=== PATIENT | male | born 1975 | race Caucasian/White ===

== ENCOUNTER 2016-04-08 21:28 | Emergency (ER) | payer OTHER ==
[2016-04-08] MEDS ORDERED: CHARCOAL ACTIVATED LIQUID 25 GM/120 ML BTL As Ordered ONE (21:52)
[2016-04-08 21:57] LABS: MEAN CORPUSCULAR HGB CONC 34.5 g/dl (32.0-36.5); MEAN CORPUSCULAR VOLUME 86.9 fl (80.0-96.0); RED CELL DISTRIBUTION WIDTH 11.9 % (11.5-14.5); WHITE BLOOD COUNT 4.3 K/mm3 (4.0-10.0)
[2016-04-08 22:37] LABS: ALBUMIN 3.9 GM/DL (3.2-5.2); ALKALINE PHOSPHATASE 48 U/L (45-117); ALT/SGPT 65 U/L (12-78); ANION GAP 8 MEQ/L (8-16); AST/SGOT 33 U/L (15-37); BILIRUBIN,DIRECT 0.3 MG/DL (0.0-0.2); BILIRUBIN,TOTAL 1.4 MG/DL (0.2-1.0); BLOOD UREA NITROGEN 16 MG/DL (7-18); CALCIUM LEVEL 8.8 MG/DL (8.5-10.1); CARBON DIOXIDE LEVEL 29 MEQ/L (21-32); CHLORIDE LEVEL 105 MEQ/L (98-107); GLOMERULAR FILTRATION RATE > 60.0 (>60); GLUCOSE, FASTING 126 MG/DL (70-105); POTASSIUM SERUM 3.5 MEQ/L (3.5-5.1); SODIUM LEVEL 142 MEQ/L (136-145); TOTAL PROTEIN 6.9 GM/DL (6.4-8.2)
[2016-04-08 22:39] LABS: AMPHETAMINES LEVEL URINE NEGATIVE (NEGATIVE); BENZODIAZEPINES URINE NEGATIVE (NEGATIVE); COCAINE METABOLITE URINE NEGATIVE (NEGATIVE); CONTROL LINE INT CTR LINE PRESENT; METHADONE URINE NEGATIVE (NEGATIVE); OPIATES URINE NEGATIVE (NEGATIVE); TRICYCLIC ANTIDEPRESS URINE NEGATIVE (NEGATIVE)
--- NOTE | 2016-04-09 02:43 | EDDOCDS ---
Physician Documentation [facility] Name: Dirk Quintero Age: 40 yrs Sex: Male : 1975 Arrival Date: 04/08/2016 Time: 21:28 Bed BH Private MD: Disposition: 04/09/16 01:40 [facility]. Diagnosis is Suicide attempt. - Reason for transfer: Higher level of care. - Accepting physician is Dr Stratton. - Condition is Stable. - Problem is new. - Symptoms have improved. Historical: - Allergies: No known drug Allergies; - Home Meds: 1. 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 omeprazole 20 mg Oral cpDR 1 cap once daily 3. ibuprofen 800 mg Oral tab 1 tab 3 times per day 4. Zyrtec 10 mg Oral tab 1 tab once daily - PMHx: GERD; - PSHx: none; - Social history: Smoking status: Patient states former smoker of tobacco. No barriers to communication noted, The patient speaks fluent Israeli, Speaks appropriately for age. - Family history: Not pertinent. - : The pt / caregiver states he / she is not on anticoagulants. Home medication list is obtained from the patient. - Exposure Risk Screening:: None identified. Vital Signs: 04/08 21:33 BP 165 / 102; Pulse 83; Resp 18; Temp 97.4(O); Pulse Ox 94% on R/A; Weight 107.05 kg / conrado 236 lbs (R); Height 70 in. (177.80 cm) (R); Pain 0/10; 23:35 BP 143 / 86; Pulse 88; Resp 18; Temp 98.3(TE); Pulse Ox 94% on R/A; Pain 0/10; nn1 04/09 02:40 BP 133 / 67; Pulse 74; Resp 16; Temp 97.4; Pulse Ox 99% on R/A; Pain 0/10; sls1 04/08 21:33 Body Mass Index 33.86 (107.05 kg, 177.80 cm) conrado MDM: 04/08 21:32 Consult PFS/PSA/Video Game Creator ordered. 11 21:32 Consult PFS/PSA/Video Game Creator: Patient's case requires discussion with on-call 11 Psychiatrist ordered. 21:32 PSA/PFS to call Nursing Sales And Leasing Agent, to enter patient data on [place] Safe [place] if patient cs11 involuntarily admitted or transferred for SI or HI ordered. 21:32 Confirm accurate psychiatric medication list and times of last dosage ordered. cs11 21:32 Detain Pt Until Medically/PFS Cleared ordered. cs11 21:33 Acetaminophen Level Ordered. EDMS 21:33 Basic Metabolic Profile Ordered. EDMS 21:33 Complete Blood Count Ordered. EDMS 21:33 Drug Eval Toxicology ED Only Ordered. EDMS 21:33 Ethyl Alcohol (ethanol) Ordered. EDMS 21:34 Liver Profile Ordered. EDMS 21:34 Salicylate Level Ordered. EDMS 21:34 Thyroid Stimulating Hormone Ordered. EDMS 21:34 ECG WITH READING ER PHYS+CARDIAG ordered. EDMS 21:38 Activated Charcoal (1g/kg) Suspension 100 grams PO once ordered. cs11 21:42 Consult PFS/PSA/Video Game Creator complete. ml4 21:42 Consult PFS/PSA/Video Game Creator: Patient's case requires discussion with on-call ml4 Psychiatrist complete. 21:42 PSA/PFS to call Nursing Sales And Leasing Agent, to enter patient data [place] Safe [place] if patient ml4 involuntarily admitted or transferred for SI or HI complete. 22:31 Complete Blood Count Reviewed. cs11 23:13 Financial registration complete. zo 23:15 [facility] Payment Agreement was scanned into [email or web address] and attached to record. zo 23:21 Acetaminophen Level Reviewed. cs11 23:21 Basic Metabolic Profile Reviewed. cs11 23:21 Liver Profile Reviewed. cs11 23:21 Salicylate Level Reviewed. cs11 23:21 Thyroid Stimulating Hormone Reviewed. cs11 23:21 Drug Eval Toxicology ED Only Reviewed. cs11 23:21 Ethyl Alcohol (ethanol) Reviewed. cs11 23:21 Consult PFS/PSA/Socail Worker: Cleared medically for eval ordered. cs11 04/09 00:40 Consult PFS/PSA/Socail Worker: Cleared medically for eval complete. cl 01:40 [facility] Legal paperwork was scanned into [email or web address] and attached to record. cl Administered Medications: 04/08 23:35 Drug: Activated Charcoal (1g/kg) 100 grams [activated charcoal 25 gram/120 mL oral nn1 suspension (9600 drps)] {Note: Patient drank all 4 bottles of charcoal. .} Route: PO; Signatures: Dispatcher [employer] EDMS Job Martinez, PSA PSA cl Ameena Lewis, PSA PSA ml4 Christi Cooley Shannon RN RN sls1 [place] Vásquez, DO OVIEDO cs11 Bonny Mg LPN LPN Susan Rees,RN RN nn1 The chart was reviewed and I authenticate all verbal orders and agree with the evaluation and treatment provided.Attachments: 23:15 [facility] Payment Agreement zo MTDD
--- NOTE | 2016-04-09 02:43 | EDDOCDS ---
Nurse's Notes [facility] Name: Dirk Quintero Age: 40 yrs Sex: Male : 1975 Arrival Date: 04/08/2016 Time: 21:28 Bed [facility] Private MD: Diagnosis: Suicide attempt Presentation: 04/08 21:33 Presenting complaint: Patient states: he believes he took approximately 10 pills, nn1 bottle found empty without a cap. Patient states "I was tired of fighting, I wanted to be done". EMS states: patient overdosed on clonazepam. Patient drowsy upon arrival, patient reports "I wanted to go to sleep". EMS reports Viagra also found in hotel room. EMS found note stating "I really didn't know what happen to me, I love my family". Adult Sepsis Screening: Patient has new or worsening altered mentation (1 point). Patient's respiratory rate is less than 22. Systolic blood pressure is greater than 100. Patient has a qSOFA score of 0- Negative Sepsis Screen. Suicide/Homicide risk assessment- The patient admits to and/or has been reported to be having suicidal ideations. 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 Transition of care: patient was not received from another setting of care. 21:33 Acuity: PEÑA Level 3 nn1 21:33 Method Of Arrival: Ambulance nn1 Triage Assessment: 21:40 General: Appears in no apparent distress, comfortable, Behavior is appropriate for age, nn1 cooperative, drowsy. Pain: Denies pain. Pt Declines HIV testing. The patient is triaged at the bedside. See Assessment in Nurses Notes section of ED record. Neurological: Level of Consciousness is awake, alert, obeys commands, Oriented to person, place, time, Moves all extremities. Speech is slurred, Facial symmetry appears normal. Cardiovascular: Capillary refill < 3 seconds Chest pain is denied. Respiratory: Airway is patent Respiratory effort is even, unlabored, Respiratory pattern is regular, symmetrical, Breath sounds are clear bilaterally. GI: Abdomen is non- distended Bowel sounds present X 4 quads. Abd is soft and non tender X 4 quads. Derm: Skin is pink, warm & dry. Historical: - Allergies: No known drug Allergies; - Home Meds: 1. 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 omeprazole 20 mg Oral cpDR 1 cap once daily 3. ibuprofen 800 mg Oral tab 1 tab 3 times per day 4. Zyrtec 10 mg Oral tab 1 tab once daily - PMHx: GERD; - PSHx: none; - Social history: Smoking status: Patient states former smoker of tobacco. No barriers to communication noted, The patient speaks fluent Estonian, Speaks appropriately for age. - Family history: Not pertinent. - : The pt / caregiver states he / she is not on anticoagulants. Home medication list is obtained from the patient. - Exposure Risk Screening:: None identified. Screenin:36 Screening information is obtained from the patient. Fall risk: No risks identified. nn1 Assistance ADL's: requires no assistance with activities of daily living. Abuse/DV Screen: The patient / caregiver reports he/she is: not in a situation that causes fear, pain or injury. Nutritional screening: No deficits noted. Advance Directives: There is no active DNR order. home support is adequate. Assessment: 21:41 General: See triage assessment . nn1 22:03 General: Patient drinking first bottle of charcoal at this time. Neurological: Level of nn1 Consciousness is awake, alert, obeys commands, Oriented to person, place, time. Respiratory: Airway is patent Respiratory effort is even, unlabored, Respiratory pattern is regular, symmetrical. 22:32 General: Appears in no apparent distress, comfortable, Behavior is appropriate for age, nn1 cooperative. Neurological: Level of Consciousness is awake, alert, obeys commands, Oriented to person, place, time, Moves all extremities. Speech is normal, Facial symmetry appears normal. Respiratory: Airway is patent Respiratory effort is even, unlabored, Respiratory pattern is regular, symmetrical. GI: Denies nausea, vomiting. Derm: Skin is pink, warm & dry. 22:33 General: Patient drinking 3rd bottle of charcoal. No vomiting at this time.. nn1 23:09 Reassessment: Patient appears in no apparent distress at this time. General: Appears in nn1 no apparent distress, comfortable, Behavior is appropriate for age, cooperative. Respiratory: Airway is patent Respiratory effort is even, unlabored, Respiratory pattern is regular, symmetrical. 23:36 General: Appears in no apparent distress, comfortable, Behavior is appropriate for age, nn1 cooperative. Pain: Denies pain. Neurological: Level of Consciousness is awake, alert, obeys commands, Oriented to person, place, time. Respiratory: Airway is patent Respiratory effort is even, unlabored, Respiratory pattern is regular, symmetrical, Breath sounds are clear bilaterally. GI: No deficits noted. Derm: Skin is pink, warm & dry. 23:36 General: Patient moved to [facility]. . nn1 04/09 01:19 General: Appears in no apparent distress, comfortable, Behavior is appropriate for age, slm cooperative. General: pt resting on stretcher security observing . Respiratory: Airway is patent Respiratory effort is even, unlabored, Respiratory pattern is regular. 02:26 General: Appears in no apparent distress, comfortable, Behavior is appropriate for age, slm cooperative. General: pt resting on stretcher security observing . Respiratory: Airway is patent Respiratory effort is even, unlabored. Derm: Skin is pink, warm & dry. 02:36 General: Appears in no apparent distress, comfortable, Behavior is appropriate for age, slm cooperative. General: awaiting transfer security observing . Pain: Denies pain. Neurological: Level of Consciousness is awake, alert, obeys commands. Respiratory: Airway is patent Respiratory effort is even, unlabored. Derm: Skin is pink, warm & dry. 02:40 General: Appears in no apparent distress, Behavior is appropriate for age, cooperative. sls1 Neurological: No deficits noted. Mental Health Eval: 04/08 21:55 Referral Information: Evaluation referral is generated by [facility]. The patient was referred for evaluation because Pt reportedly feeling hopeless/depressed, took intentional OD of Klonopin earlier this evening, made statements that he was "done", tearful on arrival to ED.. Awaiting: medical clearance for [facility]... 04/09 00:02 Status: [facility] Behavioral Health: The patient is not an established patient of [facility]. 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 Pt admittedly took Klonopin last evening due to wanting "to be done with everything", "didn't care if I would wake up or not", states he spoke to his on phone and reported to her what he had done and she called his CHANCE, pt was found lethargic in local hotel room. PT admits to ongoing marital px, states his told him she was considering him after an incident this past weekend. Pt reports this past Friday he began drinking and had a blackout, states he ended up at a "strip joint", did not recall going there or returning to his hotel room, lost several important items including Gov't ID, informed his spouse of incident and she became angry threatening to leave him with their 3 children, pt states "its the kids that really got to me", referring to possibility that spouse will leave and take the children. Pt admits to thinking about this and then wanting to "go to sleep". 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 Pt appears sad, depressed, tearful at times, denies HI/AH/VH, reports poor sleep, low energy and poor concentration, increased appetite in past year with weight gain.. Delusions are denied. Patient's mood is dysthymic, Hallucinations are denied. Mental Health history: anxiety, depression, Mental Health Admissions: None. Current Outpatient Mental Health Services: None. Current living environment is The patient currently lives with his / her children. with his / her spouse, . The patient is . Patient presents to Emergency Department with the following symptoms within the past 2 weeks: anxiety, increased appetite, depressed mood, feelings of helplessness/hopelessness, marital problem, poor concentration, poor impulse control, sleep disturbance - erratic suicidal ideation with attempt/gesture by pills. Substance abuse: pt reports frequent ETOH use, drinks wine daily, sometimes "mixed with [place] Urbano". Mental status exam: Patients appearance is appropriate, Patient's behavior is superficially cooperative Speech is normal. Affect is flat. Mood is dysthymic Hallucinations are denied. Appetite is characterized by binges. Memory is good. Energy level is tires easily. Content of thought is depressive. depressive Thought process is intact. Cognitive level is oriented to person, place, time and situation Patient's insight is poor. Judgement is poor. Rapport with interviewer is guarded. Suicidal Ideation present with a plan to kill self by pills. Homicidal ideation is not present. Disposition: Medically cleared for disposition by Cleveland Vásquez DO Psychiatric Consult is performed by phone with Dr Tommy Mason MD. [facility] Admission Criteria: The patient has had a suicide attempt in the recent past. The patient is experiencing suicidal ideation. The patient displays symptoms of severe psychiatric disorder resulting in disordered behavior and significant interference with his / her ability to maintain self care. Psychomotor Retardation. The patient requires continuous observation and/or control to protect self, others or property. The patient's care requires a multi-modal treatment plan under close supervision and coordination due to the complexity and severity of the patient's symptoms. Legal Status: Patient's legal status will be [facility] admission: . [place] Safe Act: [place] Safe Act is applicable to this patient. The patient poses a risk to self or other and the Nursing Night Court Magistrate has been notified. He/She will enter the patient's data. DSM-V Differential Diagnosis: Adjustment Disorder (F43.2) with depressed mood (F43.21). Insurance Pre-Certification: Not Required, . Family Notification: Transfer plan is communicated to [facility] at bedside. 00:57 Narrative: Joon Garcia contacts: [facility] Pedro Early [phone]......1[employer]. [employer] Evangelista Sanford [phone]. 01:35 Narrative: [facility] on diversion, no beds at [facility] not an cl option tonight as only 1 ED physician available to complete 2PC...chart faxed to [facility] for review.... Awaiting: referral hospital acceptance. 02:34 Awaiting: arrival of EMS for transfer. cl Vital Signs: 04/08 21:33 BP 165 / 102; Pulse 83; Resp 18; Temp 97.4(O); Pulse Ox 94% on R/A; Weight 107.05 kg conrado (R); Height 70 in. (177.80 cm) (R); Pain 0/10; 23:35 BP 143 / 86; Pulse 88; Resp 18; Temp 98.3(TE); Pulse Ox 94% on R/A; Pain 0/10; nn1 04/09 02:40 BP 133 / 67; Pulse 74; Resp 16; Temp 97.4; Pulse Ox 99% on R/A; Pain 0/10; [facility] 02 21:33 Body Mass Index 33.86 (107.05 kg, 177.80 cm) conrado Vitals: 02:27 Log In Time N/A - ambulance arrival. [facility] ED Course: 04/08 21:29 Patient visited by Gisela Drew PCA. tmm1 21:29 Patient moved to Waiting tmm1 21:30 Rubia Laughlin,RN is Primary Nurse. tmm1 21:30 Patient moved to 1 tmm1 21:31 Cleveland Vásquez DO is Attending Physician. cs11 21:31 Patient visited by Cleveland Vásquez DO. cs11 21:34 Patient visited by Apoorva Flores PCA. conrado 21:34 Pt greeted and oriented to ED. Patient advised of names of staff involved in care, conrado location of call love, wait times and NPO status. Patient has correct armband on for positive identification. Placed in psych safe attire. Bed in low position. Call light in reach. Side rails up X2. surveillance system monitor on. Pulse ox on. NIBP on. 21:37 Triage Initiated nn1 21:39 Patient visited by Apoorva Flores PCA. conrado 21:39 EKG done. (by ED staff). Reviewed by Cleveland Vásquez DO. conrado 21:41 IV is patent, is intact, 20G left hand . nn1 21:50 Acetaminophen Level Sent. nn1 21:50 Basic Metabolic Profile Sent. nn1 21:50 Complete Blood Count Sent. nn1 21:50 Ethyl Alcohol (ethanol) Sent. nn1 21:50 Liver Profile Sent. nn1 21:50 Salicylate Level Sent. nn1 21:50 Thyroid Stimulating Hormone Sent. nn1 22:02 Drug Eval Toxicology ED Only Sent. nn1 22:32 Patient visited by Susan Fortune RN. nn1 23:09 Patient visited by Susan Fortune RN. nn1 23:15 [facility] Payment Agreement was scanned into [employer] (formerly [employer]) and attached to record. zo 23:24 Patient name changed from Dirk\\S\\\\S\\Brown\\S\\ to Dirk\\S\\ \\S\\Brown. EDMS 23:37 Patient moved to [facility] nn1 23:45 Patient visited by Axel Laboy. mas 23:45 Pt greeted and oriented to ED. Patient advised of names of staff involved in care, mas location of call love, wait times and NPO status. Accompanied by escorts, Patient has correct armband on for positive identification. Placed in psych safe attire. Bed in low position. Call light in reach. Side rails up X 1. Security observing. Property inventory done, secured in belongings bag- Placed in locker 1. Door closed. Noise minimized. Moved to private room. Verbal reassurance given. Warm blanket given. Pillow given. Psych Safety Check: Location: Psych Room. Visual Assessment: cooperative \\T\\ this time. 23:56 Primary Nurse role handed off by Rubia Laughlin RN dre 04/09 00:00 Patient visited by Axel Laboy. mas 00:16 Patient visited by Axel Laboy. mas 00:30 Patient visited by Axel Laboy. mas 00:44 Patient visited by Axel Laboy. mas 01:00 Patient visited by Axel Laboy. mas 01:15 Patient visited by Axel Laboy. mas 01:20 Patient visited by Bonny Mg LPN. slm 01:30 Patient visited by Axel Laboy. mas 01:40 M[facility] Legal paperwork was scanned into [employer] (formerly [employer]) and attached to record. cl 01:45 Patient visited by Axel Laboy. mas 02:01 Patient visited by Axel Laboy. mas 02:15 Patient visited by Axel Laboy. mas 02:26 Bonny Mg LPN is Primary Nurse. slm 02:27 Patient visited by Bonny Mg LPN. slm 02:27 The patient / caregiver is instructed regarding the plan of care and ED course. slm 02:30 Patient visited by Axel Laboy. mas 02:36 No procedures done that require assistance. sl Administered Medications: 04/08 23:35 Drug: Activated Charcoal (1g/kg) 100 grams [activated charcoal 25 gram/120 mL oral nn1 suspension (9600 drps)] {Note: Patient drank all 4 bottles of charcoal. .} Route: PO; Attachments: 04/09 01:40 MHE Legal paperwork cl Order Results: Lab Order: Acetaminophen Level; SPEC'M 04/08/16 21:49 Test: ACETAMINOPHEN LEVEL; Value: < 2.0; Range: 10.0-30.0; Abnormal: Below low normal; Units: UG/ML; Status: F Lab Order: Basic Metabolic Profile; [facility]04/08/16 21:49 Test: GLUCOSE, FASTING; Value: 126; Range: 70-105; Abnormal: Above high normal; Units: MG/DL; Status: F Test: BLOOD UREA NITROGEN; Value: 16; Range: 7-18; Units: MG/DL; Status: F Test: CREATININE FOR GFR; Value: 1.10; Range: 0.70-1.30; Units: MG/DL; Status: F Test: GLOMERULAR FILTRATION RATE; Value: > 60.0; Range: >60; Status: F Test: SODIUM LEVEL; Value: 142; Range: 136-145; Units: MEQ/L; Status: F Test: POTASSIUM SERUM; Value: 3.5; Range: 3.5-5.1; Units: MEQ/L; Status: F Test: CHLORIDE LEVEL; Value: 105; Range: 98-107; Units: MEQ/L; Status: F Test: CARBON DIOXIDE LEVEL; Value: 29; Range: 21-32; Units: MEQ/L; Status: F Test: ANION GAP; Value: 8; Range: 8-16; Units: MEQ/L; Status: F Test: CALCIUM LEVEL; Value: 8.8; Range: 8.5-10.1; Units: MG/DL; Status: F Test Note: ; Units are mL/min/1.73 m2 Chronic Kidney Disease Staging per NKF: Stage I & II GFR >=60 Normal to Mildly Decreased Stage III GFR 30-59 Moderately Decreased Stage IV GFR 15-29 Severely Decreased Stage V GFR <15 Very Little GFR Left ESRD GFR <15 on BEHAVIOR CLINICIAN Lab Order: Complete Blood Count; 04/08/16 21:49 Test: WHITE BLOOD COUNT; Value: 4.3; Range: 4.0-10.0; Units: K/mm3; Status: F Test: RED BLOOD COUNT; Value: 5.24; Range: 4.30-6.10; Units: M/mm3; Status: F Test: HEMOGLOBIN; Value: 15.7; Range: 14.0-18.0; Units: g/dl; Status: F Test: HEMATOCRIT; Value: 45.6; Range: 42.0-52.0; Units: %; Status: F Test: MEAN CORPUSCULAR VOLUME; Value: 86.9; Range: 80.0-96.0; Units: fl; Status: F Test: MEAN CORPUSCULAR HEMOGLOBIN; Value: 30.0; Range: 27.0-33.0; Units: pg; Status: F Test: MEAN CORPUSCULAR HGB CONC; Value: 34.5; Range: 32.0-36.5; Units: g/dl; Status: F Test: RED CELL DISTRIBUTION WIDTH; Value: 11.9; Range: 11.5-14.5; Units: %; Status: F Test: PLATELET COUNT, AUTOMATED; Value: 186; Range: 150-450; Units: k/mm3; Status: F Lab Order: Drug Eval Toxicology ED Only; SPEC'M 04/08/16 21:55 Test: AMPHETAMINES LEVEL URINE; Value: NEGATIVE; Range: NEGATIVE; Status: F Test: BARBITURATES URINE; Value: NEGATIVE; Range: NEGATIVE; Status: F Test: BENZODIAZEPINES URINE; Value: NEGATIVE; Range: NEGATIVE; Status: F Test: CANNABINOIDS URINE; Value: NEGATIVE; Range: NEGATIVE; Status: F Test: COCAINE METABOLITE URINE; Value: NEGATIVE; Range: NEGATIVE; Status: F Test: METHADONE URINE; Value: NEGATIVE; Range: NEGATIVE; Status: F Test: OPIATES URINE; Value: NEGATIVE; Range: NEGATIVE; Status: F Test: TRICYCLIC ANTIDEPRESS URINE; Value: NEGATIVE; Range: NEGATIVE; Status: F Test Note: ; ALL PRESUMPTIVE POSITIVE FINDINGS ARE UNCONFIRMED NORMAL VALUES THRESHOLD IN NG/ML AMPHETAMINES 1000 METHAMPHETAMINES 1000 BARBITURATES 300 BENZODIAZEPINES 300 CANNABINOIDS (THC) 50 COCAINE METABOLITE 300 METHADONE 300 OPIATES 300 PHENCYCLIDINE 25 TRICYCLIC ANTIDEPRESSANTS 1000 RESULTS ARE FOR MEDICAL PURPOSES ONLY. ALL URINE SPECIMENS WILL BE SAVED FOR 3 DAYS. IF CONFIRMATION OF A PRESUMPTIVE POSTIVE SCREEN RESULT IS DESIRED, CALL CHEMISTRY ([phone]) AND REQUEST URINE TO BE SENT TO REFERENCE LAB. FOR A LIST OF CLOSELY RELATED COMPOUNDS PLEASE CALL THE LAB. Lab Order: Ethyl Alcohol (ethanol); SPEC'M 04/08/16 21:49 Test: ETHYL ALCOHOL (ETHANOL); Value: < 0.003; Range: 0.000-0.010; Units: %; Status: F Lab Order: Liver Profile; SPEC'M 04/08/16 21:49 Test: AST/SGOT; Value: 33; Range: 15-37; Units: U/L; Status: F Test: ALT/SGPT; Value: 65; Range: 12-78; Units: U/L; Status: F Test: ALKALINE PHOSPHATASE; Value: 48; Range: 45-117; Units: U/L; Status: F Test: BILIRUBIN,TOTAL; Value: 1.4; Range: 0.2-1.0; Abnormal: Above high normal; Units: MG/DL; Status: F Test: BILIRUBIN,DIRECT; Value: 0.3; Range: 0.0-0.2; Abnormal: Above high normal; Units: MG/DL; Status: F Test: TOTAL PROTEIN; Value: 6.9; Range: 6.4-8.2; Units: GM/DL; Status: F Test: ALBUMIN; Value: 3.9; Range: 3.2-5.2; Units: GM/DL; Status: F Test: ALBUMIN/GLOBULIN RATIO; Value: 1.30; Range: 1.00-1.93; Status: F Lab Order: Salicylate Level; SPEC'04/08/16 21:49 Test: SALICYLATE LEVEL; Value: < 1.7; Range: 5.0-30.0; Abnormal: Below low normal; Units: MG/DL; Status: F Lab Order: Thyroid Stimulating Hormone; SPEC'04/08/16 21:49 Test: THYROID STIMULATING HORMONE; Value: 3.780; Range: 0.358-3.740; Abnormal: Above high normal; Units: uIU/ML; Status: F Outcome: 01:40 ER care complete, transfer ordered by Provider. cs11 01:53 Admission hand-off: Report called to Nalini Uriostegui RN. nn1 02:15 [facility]red to [facility] sls1 to accompanying personnel Calista Dumont Pattern Molder, [facility]. 02:27 No special radiology studies were completed. [facility] 02:36 Discharge Assessment: patient administered narcotics - no. sl 02:40 The following High Risk Discharge criteria are identified: None. Transferred by EMS [facility] ground. Condition: stable. 02:42 Patient left the ED. [facility] Signatures: Dispatcher [employer] EDMS Job Martinez, PSA PSA cl Christi Cooley, Axel Flores, Apoorva, MAITRE D' MAITRE D' conrado Ashlie Mansfield, RN RN sls1 Cleveland Vásquez, DO DO cs11 McLear, Gisela, MAITRE D' MAITRE D' tmm1 Bonny Mg LPN EQUIPMENT SERVICES ASSOCIATE [facility] Susan FortuneRN RN nn1 Corrections: (The following items were deleted from the chart) 04/08 21:55 21:55 Status: cl cl MTDD
--- NOTE | 2016-04-10 17:37 | ECGEPIP ---
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
--- NOTE | 2016-04-11 03:43 | EDDOCDS ---
Physician Documentation [facility] Name: Dirk Quintero Age: 40 yrs Sex: Male : 1975 Arrival Date: 04/08/2016 Time: 21:28 Bed BH Private MD: Disposition: 04/09/16 01:40 [facility]. Diagnosis is Suicide attempt. - Reason for transfer: Higher level of care. - Accepting physician is Dr Stratton. - Condition is Stable. - Problem is new. - Symptoms have improved. Historical: - Allergies: No known drug Allergies; - Home Meds: 1. 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 omeprazole 20 mg Oral cpDR 1 cap once daily 3. ibuprofen 800 mg Oral tab 1 tab 3 times per day 4. Zyrtec 10 mg Oral tab 1 tab once daily - PMHx: GERD; - PSHx: none; - Social history: Smoking status: Patient states former smoker of tobacco. No barriers to communication noted, The patient speaks fluent Bruneian, Speaks appropriately for age. - Family history: Not pertinent. - : The pt / caregiver states he / she is not on anticoagulants. Home medication list is obtained from the patient. - Exposure Risk Screening:: None identified. Vital Signs: 04/08 21:33 BP 165 / 102; Pulse 83; Resp 18; Temp 97.4(O); Pulse Ox 94% on R/A; Weight 107.05 kg / conrado 236 lbs (R); Height 70 in. (177.80 cm) (R); Pain 0/10; 23:35 BP 143 / 86; Pulse 88; Resp 18; Temp 98.3(TE); Pulse Ox 94% on R/A; Pain 0/10; nn1 04/09 02:40 BP 133 / 67; Pulse 74; Resp 16; Temp 97.4; Pulse Ox 99% on R/A; Pain 0/10; sls1 04/08 21:33 Body Mass Index 33.86 (107.05 kg, 177.80 cm) conrado MDM: 04/08 21:32 Consult PFS/PSA/Bi Report Developer ordered. 11 21:32 Consult PFS/PSA/Bi Report Developer: Patient's case requires discussion with on-call 11 Psychiatrist ordered. 21:32 PSA/PFS to call Nursing Applications Intern, to enter patient data on [place] Safe Act if patient cs11 involuntarily admitted or transferred for SI or HI ordered. 21:32 Confirm accurate psychiatric medication list and times of last dosage ordered. cs11 21:32 Detain Pt Until Medically/PFS Cleared ordered. cs11 21:33 Acetaminophen Level Ordered. EDMS 21:33 Basic Metabolic Profile Ordered. EDMS 21:33 Complete Blood Count Ordered. EDMS 21:33 Drug Eval Toxicology ED Only Ordered. EDMS 21:33 Ethyl Alcohol (ethanol) Ordered. EDMS 21:34 Liver Profile Ordered. EDMS 21:34 Salicylate Level Ordered. EDMS 21:34 Thyroid Stimulating Hormone Ordered. EDMS 21:34 ECG WITH READING ER PHYS+CARDIAG ordered. EDMS 21:38 Activated Charcoal (1g/kg) Suspension 100 grams PO once ordered. cs11 21:42 Consult PFS/PSA/Bi Report Developer complete. ml4 21:42 Consult PFS/PSA/Bi Report Developer: Patient's case requires discussion with on-call ml4 Psychiatrist complete. 21:42 PSA/PFS to call Nursing Applications Intern, to enter patient data on [place] Safe [place] if patient ml4 involuntarily admitted or transferred for SI or HI complete. 22:31 Complete Blood Count Reviewed. cs11 23:13 Financial registration complete. zo 23:15 [facility] Payment Agreement was scanned into [employer] and attached to record. zo 23:21 Acetaminophen Level Reviewed. cs11 23:21 Basic Metabolic Profile Reviewed. cs11 23:21 Liver Profile Reviewed. cs11 23:21 Salicylate Level Reviewed. cs11 23:21 Thyroid Stimulating Hormone Reviewed. cs11 23:21 Drug Eval Toxicology ED Only Reviewed. cs11 23:21 Ethyl Alcohol (ethanol) Reviewed. cs11 23:21 Consult PFS/PSA/Socail Worker: Cleared medically for eval ordered. cs11 04/09 00:40 Consult PFS/PSA/Socail Worker: Cleared medically for eval complete. cl 01:40 [facility] Legal paperwork was scanned into [employer] and attached to record. cl 10:16 T-Sheet-- Draft Copy was scanned into [employer] and attached to record. gb 14:41 PCR was scanned into [employer] and attached to record. gb Administered Medications: 04/08 23:35 Drug: Activated Charcoal (1g/kg) 100 grams [activated charcoal 25 gram/120 mL oral nn1 suspension (9600 drps)] {Note: Patient drank all 4 bottles of charcoal. .} Route: PO; Signatures: Dispatcher [employer] EDMS Job Martinez, PSA PSA cl Haydee Sullivan, Reg Reg gb Ameena Lewis, PSA PSA ml4 Christi Cooley Shannon, RN RN sls1 Cleveland Vásquez, DO cs11 Bonny Mg LPN SOCIAL MEDIA MARKETING ANALYST slSusan CastanoRN RN nn1 The chart was reviewed and I authenticate all verbal orders and agree with the evaluation and treatment provided.Attachments: 23:15 [facility] Payment Agreement zo 10:16 T-Sheet-- Draft Copy gb Chart Complete MTDD
--- NOTE | 2016-04-11 03:43 | EDDOCDS ---
Physician Documentation [facility] Name: Dirk Quintero Age: 40 yrs Sex: Male : 1975 Arrival Date: 04/08/2016 Time: 21:28 Bed BH Private MD: Disposition: 04/09/16 01:40 [facility] Diagnosis is Suicide attempt. - Reason for transfer: Higher level of care. - Accepting physician is Dr Stratton. - Condition is Stable. - Problem is new. - Symptoms have improved. Historical: - Allergies: No known drug Allergies; - Home Meds: 1. 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 omeprazole 20 mg Oral cpDR 1 cap once daily 3. ibuprofen 800 mg Oral tab 1 tab 3 times per day 4. Zyrtec 10 mg Oral tab 1 tab once daily - PMHx: GERD; - PSHx: none; - Social history: Smoking status: Patient states former smoker of tobacco. No barriers to communication noted, The patient speaks fluent Argentine, Speaks appropriately for age. - Family history: Not pertinent. - : The pt / caregiver states he / she is not on anticoagulants. Home medication list is obtained from the patient. - Exposure Risk Screening:: None identified. Vital Signs: 04/08 21:33 BP 165 / 102; Pulse 83; Resp 18; Temp 97.4(O); Pulse Ox 94% on R/A; Weight 107.05 kg / conrado 236 lbs (R); Height 70 in. (177.80 cm) (R); Pain 0/10; 23:35 BP 143 / 86; Pulse 88; Resp 18; Temp 98.3(TE); Pulse Ox 94% on R/A; Pain 0/10; nn1 04/09 02:40 BP 133 / 67; Pulse 74; Resp 16; Temp 97.4; Pulse Ox 99% on R/A; Pain 0/10; sls1 04/08 21:33 Body Mass Index 33.86 (107.05 kg, 177.80 cm) conrado MDM: 04/08 21:32 Consult PFS/PSA/Facilities Technician ordered. 11 21:32 Consult PFS/PSA/Facilities Technician: Patient's case requires discussion with on-call 11 Psychiatrist ordered. 21:32 PSA/PFS to call Nursing Computer Tester, to enter [place] data [place] if patient cs11 involuntarily admitted or transferred for SI or HI ordered. 21:32 Confirm accurate psychiatric medication list and times of last dosage ordered. cs11 21:32 Detain Pt Until Medically/PFS Cleared ordered. cs11 21:33 Acetaminophen Level Ordered. EDMS 21:33 Basic Metabolic Profile Ordered. EDMS 21:33 Complete Blood Count Ordered. EDMS 21:33 Drug Eval Toxicology ED Only Ordered. EDMS 21:33 Ethyl Alcohol (ethanol) Ordered. EDMS 21:34 Liver Profile Ordered. EDMS 21:34 Salicylate Level Ordered. EDMS 21:34 Thyroid Stimulating Hormone Ordered. EDMS 21:34 ECG WITH READING ER PHYS+CARDIAG ordered. EDMS 21:38 Activated Charcoal (1g/kg) Suspension 100 grams PO once ordered. cs11 21:42 Consult PFS/PSA/Facilities Technician complete. ml4 21:42 Consult PFS/PSA/Facilities Technician: Patient's case requires discussion with on-call ml4 Psychiatrist complete. 21:42 PSA/PFS to call Nursing Computer Tester, to enter [place] data [place] if patient ml4 involuntarily admitted or transferred for SI or HI complete. 22:31 Complete Blood Count Reviewed. cs11 23:13 Financial registration complete. zo 23:15 [facility] Payment Agreement was scanned into [employer] and attached to record. zo 23:21 Acetaminophen Level Reviewed. cs11 23:21 Basic Metabolic Profile Reviewed. cs11 23:21 Liver Profile Reviewed. cs11 23:21 Salicylate Level Reviewed. cs11 23:21 Thyroid Stimulating Hormone Reviewed. cs11 23:21 Drug Eval Toxicology ED Only Reviewed. cs11 23:21 Ethyl Alcohol (ethanol) Reviewed. cs11 23:21 Consult PFS/PSA/Socail Worker: Cleared medically for eval ordered. cs11 04/09 00:40 Consult PFS/PSA/Socail Worker: Cleared medically for eval complete. cl 01:40 [facility] Legal paperwork was scanned into [employer] and attached to record. cl 10:16 T-Sheet-- Draft Copy was scanned into [employer] and attached to record. gb 14:41 PCR was scanned into [employer] and attached to record. gb Administered Medications: 04/08 23:35 Drug: Activated Charcoal (1g/kg) 100 grams [activated charcoal 25 gram/120 mL oral nn1 suspension (9600 drps)] {Note: Patient drank all 4 bottles of charcoal. .} Route: PO; Signatures: Dispatcher [employer] EDMS Job Martinez, PSA PSA cl Haydee Sullivan, Reg Reg gb Ameena Lewis, PSA PSA ml4 Christi Cooley Shannon, RN RN sls1 Cleveland Váqsuez, DO cs11 Bonny Mg LPN FORENSIC ACCOUNTANT slSusan CastanoRN RN nn1 The chart was reviewed and I authenticate all verbal orders and agree with the evaluation and treatment provided.Attachments: 23:15 [facility] Payment Agreement zo 10:16 T-Sheet-- Draft Copy gb Chart Complete MTDD
--- NOTE | 2016-04-11 03:43 | EDDOCDS ---
Nurse's Notes [facility] Name: Alex Quintero Age: 40 yrs Sex: Male : 1975 Arrival Date: 04/08/2016 Time: 21:28 Bed [facility] Private MD: Diagnosis: Suicide attempt Presentation: 04/08 21:33 Presenting complaint: Patient states: he believes he took approximately 10 pills, nn1 bottle found empty without a cap. Patient states "I was tired of fighting, I wanted to be done". EMS states: patient overdosed on clonazepam. Patient drowsy upon arrival, patient reports "I wanted to go to sleep". EMS reports Viagra also found in hotel room. EMS found note stating "I really didn't know what happen to me, I love my family". Adult Sepsis Screening: Patient has new or worsening altered mentation (1 point). Patient's respiratory rate is less than 22. Systolic blood pressure is greater than 100. Patient has a qSOFA score of 0- Negative Sepsis Screen. Suicide/Homicide risk assessment- The patient admits to and/or has been reported to be having suicidal ideations. 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 Transition of care: patient was not received from another setting of care. 21:33 Acuity: PEÑA Level 3 nn1 21:33 Method Of Arrival: Ambulance nn1 Triage Assessment: 21:40 General: Appears in no apparent distress, comfortable, Behavior is appropriate for age, nn1 cooperative, drowsy. Pain: Denies pain. Pt Declines HIV testing. The patient is triaged at the bedside. See Assessment in Nurses Notes section of ED record. Neurological: Level of Consciousness is awake, alert, obeys commands, Oriented to person, place, time, Moves all extremities. Speech is slurred, Facial symmetry appears normal. Cardiovascular: Capillary refill < 3 seconds Chest pain is denied. Respiratory: Airway is patent Respiratory effort is even, unlabored, Respiratory pattern is regular, symmetrical, Breath sounds are clear bilaterally. GI: Abdomen is non- distended Bowel sounds present X 4 quads. Abd is soft and non tender X 4 quads. Derm: Skin is pink, warm & dry. Historical: - Allergies: No known drug Allergies; - Home Meds: 1. 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 omeprazole 20 mg Oral cpDR 1 cap once daily 3. ibuprofen 800 mg Oral tab 1 tab 3 times per day 4. Zyrtec 10 mg Oral tab 1 tab once daily - PMHx: GERD; - PSHx: none; - Social history: Smoking status: Patient states former smoker of tobacco. No barriers to communication noted, The patient speaks fluent Bulgarian, Speaks appropriately for age. - Family history: Not pertinent. - : The pt / caregiver states he / she is not on anticoagulants. Home medication list is obtained from the patient. - Exposure Risk Screening:: None identified. Screenin:36 Screening information is obtained from the patient. Fall risk: No risks identified. nn1 Assistance ADL's: requires no assistance with activities of daily living. Abuse/DV Screen: The patient / caregiver reports he/she is: not in a situation that causes fear, pain or injury. Nutritional screening: No deficits noted. Advance Directives: There is no active DNR order. home support is adequate. Assessment: 21:41 General: See triage assessment . nn1 22:03 General: Patient drinking first bottle of charcoal at this time. Neurological: Level of nn1 Consciousness is awake, alert, obeys commands, Oriented to person, place, time. Respiratory: Airway is patent Respiratory effort is even, unlabored, Respiratory pattern is regular, symmetrical. 22:32 General: Appears in no apparent distress, comfortable, Behavior is appropriate for age, nn1 cooperative. Neurological: Level of Consciousness is awake, alert, obeys commands, Oriented to person, place, time, Moves all extremities. Speech is normal, Facial symmetry appears normal. Respiratory: Airway is patent Respiratory effort is even, unlabored, Respiratory pattern is regular, symmetrical. GI: Denies nausea, vomiting. Derm: Skin is pink, warm & dry. 22:33 General: Patient drinking 3rd bottle of charcoal. No vomiting at this time.. nn1 23:09 Reassessment: Patient appears in no apparent distress at this time. General: Appears in nn1 no apparent distress, comfortable, Behavior is appropriate for age, cooperative. Respiratory: Airway is patent Respiratory effort is even, unlabored, Respiratory pattern is regular, symmetrical. 23:36 General: Appears in no apparent distress, comfortable, Behavior is appropriate for age, nn1 cooperative. Pain: Denies pain. Neurological: Level of Consciousness is awake, alert, obeys commands, Oriented to person, place, time. Respiratory: Airway is patent Respiratory effort is even, unlabored, Respiratory pattern is regular, symmetrical, Breath sounds are clear bilaterally. GI: No deficits noted. Derm: Skin is pink, warm & dry. 23:36 General: Patient moved to [facility]. . nn1 04/09 01:19 General: Appears in no apparent distress, comfortable, Behavior is appropriate for age, slm cooperative. General: pt resting on stretcher security observing . Respiratory: Airway is patent Respiratory effort is even, unlabored, Respiratory pattern is regular. 02:26 General: Appears in no apparent distress, comfortable, Behavior is appropriate for age, slm cooperative. General: pt resting on stretcher security observing . Respiratory: Airway is patent Respiratory effort is even, unlabored. Derm: Skin is pink, warm & dry. 02:36 General: Appears in no apparent distress, comfortable, Behavior is appropriate for age, slm cooperative. General: awaiting transfer security observing . Pain: Denies pain. Neurological: Level of Consciousness is awake, alert, obeys commands. Respiratory: Airway is patent Respiratory effort is even, unlabored. Derm: Skin is pink, warm & dry. 02:40 General: Appears in no apparent distress, Behavior is appropriate for age, cooperative. sls1 Neurological: No deficits noted. Mental Health Eval: 04/08 21:55 Referral Information: Evaluation referral is generated by [facility]. The patient was referred for evaluation because Pt reportedly feeling hopeless/depressed, took intentional OD of Klonopin earlier this evening, made statements that he was "done", tearful on arrival to ED.. Awaiting: medical clearance for MHE... 04/09 00:02 Status: [facility] Behavioral Health: The patient is not an established patient of [facility] Behavioral Health. 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 Pt admittedly took Klonopin last evening due to wanting "to be done with everything", "didn't care if I would wake up or not", states he spoke to his on phone and reported to her what he had done and she called his CHANCE, pt was found lethargic in local hotel room. PT admits to ongoing marital px, states his told him she was considering him after an incident this past weekend. Pt reports this past Friday he began drinking and had a blackout, states he ended up at a "strip joint", did not recall going there or returning to his hotel room, lost several important items including Gov't ID, informed his spouse of incident and she became angry threatening to leave him with their 3 children, pt states "its the kids that really got to me", referring to possibility that spouse will leave and take the children. Pt admits to thinking about this and then wanting to "go to sleep". 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 Pt appears sad, depressed, tearful at times, denies HI/AH/VH, reports poor sleep, low energy and poor concentration, increased appetite in past year with weight gain.. Delusions are denied. Patient's mood is dysthymic, Hallucinations are denied. Mental Health history: anxiety, depression, Mental Health Admissions: None. Current Outpatient Mental Health Services: None. Current living environment is The patient currently lives with his / her children. with his / her spouse, . The patient is . Patient presents to Emergency Department with the following symptoms within the past 2 weeks: anxiety, increased appetite, depressed mood, feelings of helplessness/hopelessness, marital problem, poor concentration, poor impulse control, sleep disturbance - erratic suicidal ideation with attempt/gesture by pills. Substance abuse: pt reports frequent ETOH use, drinks wine daily, sometimes "mixed with [place] Urbano". Mental status exam: Patients appearance is appropriate, Patient's behavior is superficially cooperative Speech is normal. Affect is flat. Mood is dysthymic Hallucinations are denied. Appetite is characterized by binges. Memory is good. Energy level is tires easily. Content of thought is depressive. depressive Thought process is intact. Cognitive level is oriented to person, place, time and situation Patient's insight is poor. Judgement is poor. Rapport with interviewer is guarded. Suicidal Ideation present with a plan to kill self by pills. Homicidal ideation is not present. Disposition: Medically cleared for disposition by Luisa Wheatley DO Psychiatric Consult is performed by phone with Dr Tommy Mason MD. [facility] Admission Criteria: The patient has had a suicide attempt in the recent past. The patient is experiencing suicidal ideation. The patient displays symptoms of severe psychiatric disorder resulting in disordered behavior and significant interference with his / her ability to maintain self care. Psychomotor Retardation. The patient requires continuous observation and/or control to protect self, others or property. The patient's care requires a multi-modal treatment plan under close supervision and coordination due to the complexity and severity of the patient's symptoms. Legal Status: Patient's legal status will be [facility] admission: . [place] Safe Act: [place] Safe Act is applicable to this patient. The patient poses a risk to self or other and the Nursing Cna Gna has been notified. He/She will enter the patient's data. DSM-V Differential Diagnosis: Adjustment Disorder (F43.2) with depressed mood (F43.21). Insurance Pre-Certification: Not Required, . Family Notification: Transfer plan is communicated to [facility] at bedside. 00:57 Narrative: Joon Garcia contacts: [facility] Pedro Early [phone]......1[employer]. [employer]. Evangelista Sanford [phone]. 01:35 Narrative: [facility] on diversion, no beds at [facility] [place] not an cl option tonight as only 1 ED physician available to complete 2PC...chart faxed to [facility] for review.... Awaiting: referral hospital acceptance. 02:34 Awaiting: arrival of EMS for transfer. cl Vital Signs: 04/08 21:33 BP 165 / 102; Pulse 83; Resp 18; Temp 97.4(O); Pulse Ox 94% on R/A; Weight 107.05 kg conrado (R); Height 70 in. (177.80 cm) (R); Pain 0/10; 23:35 BP 143 / 86; Pulse 88; Resp 18; Temp 98.3(TE); Pulse Ox 94% on R/A; Pain 0/10; nn1 04/09 02:40 BP 133 / 67; Pulse 74; Resp 16; Temp 97.4; Pulse Ox 99% on R/A; Pain 0/10; [facility] 02 21:33 Body Mass Index 33.86 (107.05 kg, 177.80 cm) conrado Vitals: 02:27 Log In Time N/A - ambulance arrival. [facility] ED Course: 04/08 21:29 Patient visited by Gisela Drew PCA. tmm1 21:29 Patient moved to Waiting tmm1 21:30 Rubia Laughlin,RN is Primary Nurse. tmm1 21:30 Patient moved to 1 tmm1 21:31 Luisa Wheatley DO is Attending Physician. cs11 21:31 Patient visited by Luisa Wheatley DO. cs11 21:34 Patient visited by Apoorva Flores PCA. conrado 21:34 Pt greeted and oriented to ED. Patient advised of names of staff involved in care, conrado location of call love, wait times and NPO status. Patient has correct armband on for positive identification. Placed in psych safe attire. Bed in low position. Call light in reach. Side rails up X2. bus monitor on. Pulse ox on. NIBP on. 21:37 Triage Initiated nn1 21:39 Patient visited by Apoorva Flores PCA. conrado 21:39 EKG done. (by ED staff). Reviewed by Luisa Wheatley DO. conrado 21:41 IV is patent, is intact, 20G left hand . nn1 21:50 Acetaminophen Level Sent. nn1 21:50 Basic Metabolic Profile Sent. nn1 21:50 Complete Blood Count Sent. nn1 21:50 Ethyl Alcohol (ethanol) Sent. nn1 21:50 Liver Profile Sent. nn1 21:50 Salicylate Level Sent. nn1 21:50 Thyroid Stimulating Hormone Sent. nn1 22:02 Drug Eval Toxicology ED Only Sent. nn1 22:32 Patient visited by Susan Fortune RN. nn1 23:09 Patient visited by Susan Fortune RN. nn1 23:15 [facility] Payment Agreement was scanned into [facility] and attached to record. zo 23:24 Patient name changed from Alex\\S\\\\S\\Brown\\S\\ to Alex\\S\\ \\S\\Brown. EDMS 23:37 Patient moved to [facility] nn1 23:45 Patient visited by Axel Laboy. mas 23:45 Pt greeted and oriented to ED. Patient advised of names of staff involved in care, mas location of call love, wait times and NPO status. Accompanied by escorts, Patient has correct armband on for positive identification. Placed in psych safe attire. Bed in low position. Call light in reach. Side rails up X 1. Security observing. Property inventory done, secured in belongings bag- Placed in locker 1. Door closed. Noise minimized. Moved to private room. Verbal reassurance given. Warm blanket given. Pillow given. Psych Safety Check: Location: Psych Room. Visual Assessment: cooperative \\T\\ this time. 23:56 Primary Nurse role handed off by Rubia Laughlin RN dre 04/09 00:00 Patient visited by Axel Laboy. mas 00:16 Patient visited by Axel Laboy. mas 00:30 Patient visited by Axel Laboy. mas 00:44 Patient visited by Axel Laboy. mas 01:00 Patient visited by Axel Laboy. mas 01:15 Patient visited by Axel Laboy. mas 01:20 Patient visited by Bonny Mg LPN. slm 01:30 Patient visited by Axel Laboy. mas 01:40 MHE Legal paperwork was scanned into [facility] and attached to record. cl 01:45 Patient visited by Axel Laboy. mas 02:01 Patient visited by Axel Laboy. mas 02:15 Patient visited by Axel Laboy. mas 02:26 Bonny Mg LPN is Primary Nurse. slm 02:27 Patient visited by Bonny Mg LPN. slm 02:27 The patient / caregiver is instructed regarding the plan of care and ED course. slm 02:30 Patient visited by Axel Laboy. mas 02:36 No procedures done that require assistance. slm 10:16 T-Sheet-- Draft Copy was scanned into [facility] and attached to record. gb 14:41 PCR was scanned into [facility] and attached to record. gb 04/10 18:15 EKG-ADULT Returned. EDMS Administered Medications: 04/08 23:35 Drug: Activated Charcoal (1g/kg) 100 grams [activated charcoal 25 gram/120 mL oral nn1 suspension (9600 drps)] {Note: Patient drank all 4 bottles of charcoal. .} Route: PO; Attachments: 04/09 01:40 MHE Legal paperwork cl Order Results: Lab Order: Acetaminophen Level; SPEC' 04/08/16 21:49 Test: ACETAMINOPHEN LEVEL; Value: < 2.0; Range: 10.0-30.0; Abnormal: Below low normal; Units: UG/ML; Status: F Lab Order: Basic Metabolic Profile; SPEC' 04/08/16 21:49 Test: GLUCOSE, FASTING; Value: 126; Range: 70-105; Abnormal: Above high normal; Units: MG/DL; Status: F Test: BLOOD UREA NITROGEN; Value: 16; Range: 7-18; Units: MG/DL; Status: F Test: CREATININE FOR GFR; Value: 1.10; Range: 0.70-1.30; Units: MG/DL; Status: F Test: GLOMERULAR FILTRATION RATE; Value: > 60.0; Range: >60; Status: F Test: SODIUM LEVEL; Value: 142; Range: 136-145; Units: MEQ/L; Status: F Test: POTASSIUM SERUM; Value: 3.5; Range: 3.5-5.1; Units: MEQ/L; Status: F Test: CHLORIDE LEVEL; Value: 105; Range: 98-107; Units: MEQ/L; Status: F Test: CARBON DIOXIDE LEVEL; Value: 29; Range: 21-32; Units: MEQ/L; Status: F Test: ANION GAP; Value: 8; Range: 8-16; Units: MEQ/L; Status: F Test: CALCIUM LEVEL; Value: 8.8; Range: 8.5-10.1; Units: MG/DL; Status: F Test Note: ; Units are mL/min/1.73 m2 Chronic Kidney Disease Staging per NKF: Stage I & II GFR >=60 Normal to Mildly Decreased Stage III GFR 30-59 Moderately Decreased Stage IV GFR 15-29 Severely Decreased Stage V GFR <15 Very Little GFR Left ESRD GFR <15 on APPLICATION MANAGER Lab Order: Complete Blood Count; SPEC' 04/08/16 21:49 Test: WHITE BLOOD COUNT; Value: 4.3; Range: 4.0-10.0; Units: K/mm3; Status: F Test: RED BLOOD COUNT; Value: 5.24; Range: 4.30-6.10; Units: M/mm3; Status: F Test: HEMOGLOBIN; Value: 15.7; Range: 14.0-18.0; Units: g/dl; Status: F Test: HEMATOCRIT; Value: 45.6; Range: 42.0-52.0; Units: %; Status: F Test: MEAN CORPUSCULAR VOLUME; Value: 86.9; Range: 80.0-96.0; Units: fl; Status: F Test: MEAN CORPUSCULAR HEMOGLOBIN; Value: 30.0; Range: 27.0-33.0; Units: pg; Status: F Test: MEAN CORPUSCULAR HGB CONC; Value: 34.5; Range: 32.0-36.5; Units: g/dl; Status: F Test: RED CELL DISTRIBUTION WIDTH; Value: 11.9; Range: 11.5-14.5; Units: %; Status: F Test: PLATELET COUNT, AUTOMATED; Value: 186; Range: 150-450; Units: k/mm3; Status: F Lab Order: Drug Eval Toxicology ED Only; SPEC'M 04/08/16 21:55 Test: AMPHETAMINES LEVEL URINE; Value: NEGATIVE; Range: NEGATIVE; Status: F Test: BARBITURATES URINE; Value: NEGATIVE; Range: NEGATIVE; Status: F Test: BENZODIAZEPINES URINE; Value: NEGATIVE; Range: NEGATIVE; Status: F Test: CANNABINOIDS URINE; Value: NEGATIVE; Range: NEGATIVE; Status: F Test: COCAINE METABOLITE URINE; Value: NEGATIVE; Range: NEGATIVE; Status: F Test: METHADONE URINE; Value: NEGATIVE; Range: NEGATIVE; Status: F Test: OPIATES URINE; Value: NEGATIVE; Range: NEGATIVE; Status: F Test: TRICYCLIC ANTIDEPRESS URINE; Value: NEGATIVE; Range: NEGATIVE; Status: F Test Note: ; ALL PRESUMPTIVE POSITIVE FINDINGS ARE UNCONFIRMED NORMAL VALUES THRESHOLD IN NG/ML AMPHETAMINES 1000 METHAMPHETAMINES 1000 BARBITURATES 300 BENZODIAZEPINES 300 CANNABINOIDS (THC) 50 COCAINE METABOLITE 300 METHADONE 300 OPIATES 300 PHENCYCLIDINE 25 TRICYCLIC ANTIDEPRESSANTS 1000 RESULTS ARE FOR MEDICAL PURPOSES ONLY. ALL URINE SPECIMENS WILL BE SAVED FOR 3 DAYS. IF CONFIRMATION OF A PRESUMPTIVE POSTIVE SCREEN RESULT IS DESIRED, CALL CHEMISTRY ([phone]) AND REQUEST URINE TO BE SENT TO REFERENCE LAB. FOR A LIST OF CLOSELY RELATED COMPOUNDS PLEASE CALL THE LAB. Lab Order: Ethyl Alcohol (ethanol); SPEC'M 04/08/16 21:49 Test: ETHYL ALCOHOL (ETHANOL); Value: < 0.003; Range: 0.000-0.010; Units: %; Status: F Lab Order: Liver Profile; SPEC'M 04/08/16 21:49 Test: AST/SGOT; Value: 33; Range: 15-37; Units: U/L; Status: F Test: ALT/SGPT; Value: 65; Range: 12-78; Units: U/L; Status: F Test: ALKALINE PHOSPHATASE; Value: 48; Range: 45-117; Units: U/L; Status: F Test: BILIRUBIN,TOTAL; Value: 1.4; Range: 0.2-1.0; Abnormal: Above high normal; Units: MG/DL; Status: F Test: BILIRUBIN,DIRECT; Value: 0.3; Range: 0.0-0.2; Abnormal: Above high normal; Units: MG/DL; Status: F Test: TOTAL PROTEIN; Value: 6.9; Range: 6.4-8.2; Units: GM/DL; Status: F Test: ALBUMIN; Value: 3.9; Range: 3.2-5.2; Units: GM/DL; Status: F Test: ALBUMIN/GLOBULIN RATIO; Value: 1.30; Range: 1.00-1.93; Status: F Lab Order: Salicylate Level; SPEC'M 04/08/16 21:49 Test: SALICYLATE LEVEL; Value: < 1.7; Range: 5.0-30.0; Abnormal: Below low normal; Units: MG/DL; Status: F Lab Order: Thyroid Stimulating Hormone; SPEC'M 04/08/16 21:49 Test: THYROID STIMULATING HORMONE; Value: 3.780; Range: 0.358-3.740; Abnormal: Above high normal; Units: uIU/ML; Status: F Radiology Order: EKG-ADULT Test: EKG-ADULT REASON FOR EXAMINATION: overdose; Stationary ECG Study; [facility] - ED; ; Test Date: 2016-04-08; Pat Name: ALEXNORMA QUINTERO Department:; Room: -; Gender: M 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 cs11 01:53 Admission hand-off: Report called to Nalini Uriostegui RN. nn1 02:15 Transferred to [facility]. by EMS ground [facility] ambulance report sls1 to accompanying personnel Calista Dumont Pool Installer, Danielito [employer]sync Basic. 02:27 No special radiology studies were completed. [facility] 02:36 Discharge Assessment: patient administered narcotics - no. sl 02:40 The following High Risk Discharge criteria are identified: None. Transferred by EMS [facility] ground. Condition: stable. 02:42 [address] the ED[address] [facility] Signatures: Dispatcher [employer] EDMS Job Martinez, WILLY PSA cl Haydee Sullivan, Reg Reg gb Christi Cooley Marcus mas Ewald, Apoorva, CORK CUTTER CORK CUTTER Ashlie Breen, RN RN sls1 Luisa Wheatley, DO cs11 McLear, Gisela, CORK CUTTER CORK CUTTER tmm1 Bonny Mg LPN LPN [facility] Susan Fortune,RN RN nn1 Corrections: (The following items were deleted from the chart) 04/08 21:55 21:55 Status: cl cl Chart Complete MTDD
== END 2016-04-09 02:42 ==
LOC: M ED 21:28
DX: T42.4X2A Poisoning by benzodiazepines, intentional self-harm, initial encounter (principal); X83.8XXA Intentional self-harm by other specified means, initial encounter; Y92.9 Unspecified place or not applicable; K21.9 Gastro-esophageal reflux disease without esophagitis; Z87.891 Personal history of nicotine dependence; Z79.899 Other long term (current) drug therapy
CPT/HCPCS: 80048; 80076; 80306; 84443; 85027; 93005; 99285; G0480